=== PATIENT | female | born 1985 | race Caucasian/White ===

== ENCOUNTER 2019-03-12 20:43 | Emergency (ER) | payer OTHER ==
[~2019-03-12] VITALS: Ht 154.9 cm; Wt 64.9 kg
[2019-03-12 21:00] VITALS: BP 111/74
--- NOTE | 2019-03-12 21:15 | NUR ---
PT AMBULATED TO BED 07.
[2019-03-12] MEDS ORDERED: ACETAMINOPHEN 325 MG TAB PO ONE (21:20)
[2019-03-12] MEDS ORDERED: ALBUTEROL SULFATE/IPRATROPIU 3 ML SOL IH ONE (21:20)
--- NOTE | 2019-03-12 21:25 | NUR ---
33 Y/O F PRESENTS TO ER C/O LEFT PELVIC PAIN X3-4 DAYS. PT FOUND OUT SHE WAS 2 WEEKS AGO. LMP 01/31/19. PT G4, P3. PT SEEN AT URGENT CARE TODAY AND HAD A REFERRAL TO COME TO ER. PER PT LAST WEEK SHE STARTED SPOTTING AND THEN THE LAST TWO DAYS SHE HAS BROWN MUCOUSY DISCHARGE. PT HAS APPOINTMENT WITH OBGYN TOMORROW. PAIN LEVEL 4/10, SHARP, COMES AND GOES. NKA. MED HX: APPENDECTOMY. SAFETY MEASURES IN PLACE. WAITING FOR ERMD TO EVALUATE PT.
--- NOTE | 2019-03-12 21:31 | NUR ---
Dr. Puckett examining patient.
[2019-03-12 22:09] LABS: BASOPHILS % (AUTO) 0.8 % (0.0-2.0); EOSINOPHILS # (AUTO) 0.1 K/uL (0-0.4); EOSINOPHILS % (AUTO) 0.8 % (0.0-4.0); HEMATOCRIT 39.5 % (36-48); LYMPHOCYTES # (AUTO) 2.1 K/uL (2.5-16.5); LYMPHOCYTES % (AUTO) 34.1 % (20.5-51.1); MEAN CORPUSCULAR HEMOGLOBIN 30 pg (27-31); MEAN CORPUSCULAR HGB CONC 33 g/dL (33-37); MEAN CORPUSCULAR VOLUME 91.5 fL (80-94); MONOCYTES # (AUTO) 0.4 K/uL (0.8-1.0); MONOCYTES % (AUTO) 7.3 % (1.7-9.3); NEUTROPHILS # (AUTO) 3.5 K/uL (1.8-7.7); PLATELET COUNT (AUTO) 147 K/uL (140-450); RED BLOOD CELL COUNT(AUTO) 4.31 MIL/uL (4.20-5.40); RED CELL DISTRIBUTION WIDTH 13.6 % (11.6-13.7); WHITE BLOOD COUNT (AUTO) 6.1 K/uL (4.8-10.8)
--- NOTE | 2019-03-12 22:17 | NUR ---
ULTRASOUND AT BEDSIDE
[2019-03-12 22:21] LABS: ANION GAP 11.4 (8-16); CARBON DIOXIDE 26.4 mmol/L (21-32); CREATININE 0.6 mg/dL (0.6-1.3); POTASSIUM 3.8 mmol/L (3.5-5.1)
[2019-03-12 22:29] LABS: ALBUMIN 3.6 g/dL (3.4-5.0); TOTAL BILIRUBIN 0.2 mg/dL (0.0-1.0)
--- NOTE | 2019-03-12 23:00 | NUR ---
PT RESTING IN BED COMFORTABLY ON CELL PHONE. WILL CONTINUE TO MONITOR.
--- NOTE | 2019-03-12 23:37 | NUR ---
Dr. Puckett examining patient.
--- NOTE | 2019-03-13 00:45 | NUR ---
PT RESTING IN BED COMFORTABLY WITH EYES CLOSED, EASILY ARROUSABLE. WILL CONTINUE TO MONITOR.
--- NOTE | 2019-03-13 01:36 | NUR ---
Patient discharged with v/s stable. Written and verbal after care instructions given and explained. Patient verbalized understanding. Ambulatory with steady gait. All questions addressed prior to discharge. Advised to follow up with obgyn.
[2019-03-13 01:37] VITALS: BP 113/65
== END 2019-03-13 01:36 | disposition home or self-care (01) ==
LOC: EDBD 20:43 → MED 20:43
DX: O26.891 Other specified pregnancy related conditions, first trimester (principal); R10.2 Pelvic and perineal pain; O20.8 Other hemorrhage in early pregnancy; Z3A.01 Less than 8 weeks gestation of pregnancy; Z90.49 Acquired absence of other specified parts of digestive tract
CPT/HCPCS: 36415; 76801; 80053; 81002; 81025; 84702; 85025; 86886; 86900; 86901; 99284

== ENCOUNTER 2022-08-25 20:40 | Emergency (ER) | payer BC, OTHER ==
[~2022-08-25] VITALS: Ht 157.5 cm; Wt 68.0 kg
[2022-08-25 20:45] VITALS: BP 161/90
--- NOTE | 2022-08-25 20:48 | NUR ---
TO LOBBY A/W BED AMBULATORY
--- NOTE | 2022-08-25 21:49 | NUR ---
PT TO BED #11
[2022-08-25] MEDS ORDERED: LIDOCAINE MPF 1% 10 MG/ML VIAL INJ ONE (22:25)
[2022-08-26 01:10] VITALS: BP 161/90
--- NOTE | 2022-08-26 01:10 | NUR ---
Patient discharged with v/s stable. Written and verbal after care instructions given and explained. Patient verbalized understanding. Ambulatory with steady gait. All questions addressed prior to discharge. Advised to follow up with PMD.
== END 2022-08-26 01:10 | disposition home or self-care (01) ==
LOC: MED 20:40 → EDBD 20:40 → MED 08-26 01:10
DX: S61.412A Laceration without foreign body of left hand, initial encounter (principal); W26.8XXA Contact with other sharp object(s), not elsewhere classified, initial encounter; Y93.89 Activity, other specified; Y92.89 Other specified places as the place of occurrence of the external cause; Y99.8 Other external cause status
CPT/HCPCS: 12001; 90471; 90715; 99283; J2001